=== PATIENT | female | born 1985 | race Two or more races ===

== ENCOUNTER 2023-02-20 23:43 | Inpatient (IN) | payer OTHER ==
[~2023-02-20] VITALS: Ht 154.9 cm; Wt 70.3 kg
[2023-02-21] MEDS ORDERED: SYNTHROID75 MCG PO (00:38)
[2023-02-21] MEDS ORDERED: PRENATAL TABLE1 EAC1 PO (00:38)
[2023-02-21] MEDS ORDERED: MUCINEX FAST-M180 M2 (00:39)
[2023-02-21] MEDS ORDERED: ACETAMINOPHEN500 M2 PO (00:39)
== END 2023-02-23 13:26 | disposition home or self-care (01) | DRG 831 ==
LOC: LDR 23:43
PROVIDERS: ADMIT Obstetrics & Gynecology Gynecology; ATTEND Obstetrics & Gynecology Gynecology
PROC: 3E0F7GC Introduction of Other Therapeutic Substance into Respiratory Tract, Via Natural or Artificial Opening (ICD-10-PCS; principal; 2023-02-21)
DX: O98.513 Other viral diseases complicating pregnancy, third trimester (principal); U07.1 COVID-19; Z3A.34 34 weeks gestation of pregnancy; B96.0 Mycoplasma pneumoniae [M. pneumoniae] as the cause of diseases classified elsewhere

== ENCOUNTER 2023-03-07 11:26 | Inpatient (IN) | payer OTHER ==
[~2023-03-07] VITALS: Ht 154.9 cm; Wt 68.0 kg
[~2023-03-07 11:26] MED LIST: ACETAMINOPHEN500 M2 PO; MUCINEX FAST-M180 M2; PRENATAL TABLE1 EAC1 PO; SYNTHROID75 MCG PO
[2023-03-26] MEDS ORDERED: SYNTHROID88 MCG PO (08:35)
[2023-03-29] MEDS ORDERED: KETO10TA2 PO (09:35)
[2023-03-29] MEDS ORDERED: PERCOCET 5-3251 EACH PO (09:35)
== END 2023-03-29 14:55 | disposition home or self-care (01) | DRG 788 ==
LOC: O/R 03-26 08:11 → OB/GYN 03-26 08:11 → LDR 03-26 10:45 → OB/GYN 03-26 13:11
PROVIDERS: ADMIT Obstetrics & Gynecology; ATTEND Obstetrics & Gynecology
PROC: 4A1HXCZ Monitoring of Products of Conception, Cardiac Rate, External Approach (ICD-10-PCS; 2023-03-26)
PROC: 10D00Z1 Extraction of Products of Conception, Low, Open Approach (ICD-10-PCS; principal; 2023-03-26 12:00)
DX: O34.211 Maternal care for low transverse scar from previous cesarean delivery (principal); Z37.0 Single live birth; Z20.822 Contact with and (suspected) exposure to COVID-19; Z3A.39 39 weeks gestation of pregnancy